=== PATIENT | male | born 1975 | race African-American/Black ===

== ENCOUNTER 2021-11-02 01:38 | Emergency (ER) | payer MEDICAID, OTHER ==
[~2021-11-02] VITALS: Ht 188 cm; Wt 118.0 kg
[~2021-11-02 01:38] MED LIST: ALBU6.7H15 INH; CHLO25TA27 PO; CLONIDINE; GABA-532 PO; GUAI-735 PO; LEVO500T2 PO; LISINOPRIL; METFORMIN; NORVASC; TRAM50TA3 PO
[2021-11-02 01:51] VITALS: BP 122/83
[2021-11-02] MEDS ORDERED: ACETAMINOPHEN 325MG TABLET PO STA (05:16)
[2021-11-02 05:54] LABS: BASOPHILS % 0.4 % (0.0-2.0); EOSINOPHILS % 1.7 % (0.0-5.0); HEMATOCRIT. 46.8 % (42.0-52.0); HEMOGLOBIN. 15.5 g/dL (14.0-18.0); LYMPHOCYTES % 35.7 % (20.0-50.0); MEAN CORPUSCULAR HEMOGLOBIN 27.8 pg (28.0-32.0); MEAN CORPUSCULAR VOLUME 83.9 fL (80.0-94.0); MEAN PLATELET VOLUME 7.6 fl (7.4-10.4); MONOCYTES % 7.4 % (2.0-8.0); NEUTROPHILS % 54.8 % (40.0-76.0); PLATELET 218 x1000/uL (130-400); RED BLOOD CELL COUNT 5.58 mill/uL (4.7-6.1); RED CELL DISTRIBUTION WIDTH 13.7 % (11.6-14.6)
[2021-11-02 06:03] LABS: CHLORIDE 101 mEq/L (98-107)
[2021-11-02] MEDS ORDERED: T3 PO (07:06)
== END 2021-11-02 07:37 | disposition home or self-care (01) ==
LOC: ER 01:38
DX: M62.838 Other muscle spasm (principal); E11.9 Type 2 diabetes mellitus without complications; I10 Essential (primary) hypertension; F12.10 Cannabis abuse, uncomplicated; Z87.820 Personal history of traumatic brain injury; Z79.84 Long term (current) use of oral hypoglycemic drugs
CPT/HCPCS: 36415; 80053; 82962; 85025; 99283

== ENCOUNTER 2022-08-14 11:24 | Inpatient (IN) | payer OTHER ==
[~2022-08-14] VITALS: Ht 185.4 cm; Wt 87.1 kg
[~2022-08-14 11:24] MED LIST changes: +T3 PO
[2022-08-14] MEDS ORDERED: NITROGLYCERIN OINT 1GM/INCH UDPKT TD ONE (12:00)
[2022-08-14] MEDS ORDERED: ASPIRIN 81MG TABLET PO ONE (12:00)
[2022-08-14 12:55] LABS: BASOPHILS % 0.3 % (0.0-2.0); EOSINOPHILS % 0.7 % (0.0-5.0); HEMATOCRIT. 41.7 % (42.0-52.0); LYMPHOCYTES % 21.8 % (20.0-50.0); MEAN CORPUSCULAR HEMOGLOBIN 28.2 pg (28.0-32.0); MEAN CORPUSCULAR VOLUME 83.9 fL (80.0-94.0); MEAN PLATELET VOLUME 7.5 fl (7.4-10.4); MONOCYTES % 8.2 % (2.0-8.0); PLATELET 273 x1000/uL (130-400); RED BLOOD CELL COUNT 4.97 mill/uL (4.7-6.1); RED CELL DISTRIBUTION WIDTH 14.9 % (11.6-14.6)
[2022-08-14 13:02] LABS: CHLORIDE 99 mEq/L (98-107)
[2022-08-14 20:00] VITALS: BP 123/76
[2022-08-15] VITALS (8 sets, daily range): BP systolic 114–156; BP diastolic 68–97
[2022-08-15] MEDS ORDERED: ACETAMINOPHEN 325MG TABLET PO PRN (00:15)
[2022-08-15 01:28] LABS: BASOPHILS % 0.2 % (0.0-2.0); EOSINOPHILS % 1.3 % (0.0-5.0); HEMATOCRIT. 38.7 % (42.0-52.0); HEMOGLOBIN. 12.9 g/dL (14.0-18.0); LYMPHOCYTES % 32.6 % (20.0-50.0); MEAN CORPUSCULAR HEMOGLOBIN 27.7 pg (28.0-32.0); MEAN CORPUSCULAR VOLUME 83.3 fL (80.0-94.0); MEAN PLATELET VOLUME 7.3 fl (7.4-10.4); MONOCYTES % 9.7 % (2.0-8.0); NEUTROPHILS % 56.2 % (40.0-76.0); PLATELET 261 x1000/uL (130-400); RED BLOOD CELL COUNT 4.65 mill/uL (4.7-6.1); RED CELL DISTRIBUTION WIDTH 14.7 % (11.6-14.6)
[2022-08-15 01:30] LABS: CHLORIDE 101 mEq/L (98-107)
[2022-08-15 01:37] LABS: HDL CHOLESTEROL 40 mg/dL (40-59); LDL CHOLESTEROL 91 mg/dL (5-100)
[2022-08-15] MEDS: ASPIRIN 325MG EC TABLET PO SCH (09:27)
[2022-08-15] MEDS: HEPARIN 5000 UNITS/ML VIAL SUBCUT SCH ×2 (09:28→21:39)
[2022-08-15] MEDS ORDERED: POTASSIUM CHLORIDE 20MEQ TABLET SR PO NR (12:15)
[2022-08-16] VITALS (8 sets, daily range): BP systolic 118–177; BP diastolic 71–111
[2022-08-16] MEDS: HEPARIN 5000 UNITS/ML VIAL SUBCUT SCH ×2 (11:08→21:30)
[2022-08-16] MEDS: ASPIRIN 325MG EC TABLET PO SCH (11:08)
[2022-08-16] MEDS ORDERED: HYDRALAZINE 20MG/ML VIAL IV NR (18:15)
[2022-08-16] MEDS ORDERED: AMLODIPINE 10MG TABLET PO NR (20:00)
[2022-08-16 21:56] LABS: CLARITY URINE CLEAR (CLEAR); COLOR URINE YELLOW (YELLOW); KETONES URINE NEGATIVE (NEGATIVE); LEUKOCYTE ESTERASE URINE NEGATIVE (NEGATIVE); NITRITE URINE NEGATIVE (NEGATIVE); OCCULT BLOOD URINE NEGATIVE (NEGATIVE); PH URINE 7.5 (4.5-8.0); PROTEIN URINE NEGATIVE (NEGATIVE); SPECIFIC GRAVITY URINE 1.005 (1.005-1.030)
[2022-08-17 04:00] VITALS: BP 123/79
[2022-08-17 08:00] VITALS: BP 151/106
[2022-08-17] MEDS: CLONIDINE 0.1MG TABLET PO PRN ×2 (09:02→13:10)
[2022-08-17] MEDS: ASPIRIN 325MG EC TABLET PO SCH (09:02)
[2022-08-17] MEDS: HEPARIN 5000 UNITS/ML VIAL SUBCUT SCH (09:25)
[2022-08-17 12:00] VITALS: BP 169/122
[2022-08-17 16:00] VITALS: BP 139/96
[2022-08-17 16:57] LABS: CHLORIDE 102 mEq/L (98-107)
[2022-08-17 19:02] VITALS: BP 128/94
== END 2022-08-17 21:04 | disposition home health service (06) | DRG 42 ==
LOC: ER 11:36 → 3WST 16:03
PROVIDERS: ADMIT Internal Medicine; ATTEND Internal Medicine
PROC: 4A00X4Z Measurement of Central Nervous Electrical Activity, External Approach (ICD-10-PCS; principal; 2022-08-17)
DX: G11.9 Hereditary ataxia, unspecified (principal); E11.9 Type 2 diabetes mellitus without complications; I10 Essential (primary) hypertension; Z79.4 Long term (current) use of insulin
CPT/HCPCS: 36415; 71045; 80048; 80053; 80061; 81003; 82390; 83880; 84484; 85025; 93005; 93306; 95816; 97162; 97166; 99285; C1893; J0360; J1644

== ENCOUNTER 2022-09-03 18:06 | Emergency (ER) | payer OTHER ==
[~2022-09-03] VITALS: Ht 188 cm; Wt 90.0 kg
[2022-09-03] MEDS ORDERED: ALPRAZOLAM 0.25 MG TABLET PO ONE ×2 (18:30→23:00)
[2022-09-03 19:08] LABS: BASOPHILS % 0.2 % (0.0-2.0); EOSINOPHILS % 0.7 % (0.0-5.0); HEMATOCRIT. 41.3 % (42.0-52.0); MEAN CORPUSCULAR HEMOGLOBIN 28.5 pg (28.0-32.0); MEAN CORPUSCULAR VOLUME 84.3 fL (80.0-94.0); MEAN PLATELET VOLUME 7.4 fl (7.4-10.4); MONOCYTES % 8.7 % (2.0-8.0); NEUTROPHILS % 60.4 % (40.0-76.0); PLATELET 291 x1000/uL (130-400); RED CELL DISTRIBUTION WIDTH 14.8 % (11.6-14.6)
[2022-09-03 19:12] LABS: CHLORIDE 96 mEq/L (98-107)
[2022-09-03 19:22] LABS: ETHANOL BLOOD < 10 mg/dL
[2022-09-03] MEDS ORDERED: ALPR0.5T MT (19:47)
[2022-09-04] VITALS: BP 120/60
== END 2022-09-04 00:07 | disposition home or self-care (01) ==
LOC: ER 18:06
DX: F41.9 Anxiety disorder, unspecified (principal); R07.89 Other chest pain; E11.9 Type 2 diabetes mellitus without complications; I10 Essential (primary) hypertension; F12.10 Cannabis abuse, uncomplicated; Z79.899 Other long term (current) drug therapy
CPT/HCPCS: 36415; 71045; 80053; 80320; 83880; 84484; 85025; 93005; 99285; G0480

== ENCOUNTER 2022-09-04 09:04 | Emergency (ER) | payer OTHER ==
[~2022-09-04] VITALS: Ht 188 cm; Wt 91.0 kg
[~2022-09-04 09:04] MED LIST changes: +ALPR0.5T MT
[2022-09-04] MEDS ORDERED: ALPRAZOLAM 0.5 MG TABLET PO ONE (11:15)
[2022-09-04] MEDS ORDERED: KETOROLAC 30MG/ML VIAL IV ONE (11:15)
[2022-09-04 11:17] LABS: BASOPHILS % 0.5 % (0.0-2.0); EOSINOPHILS % 1.3 % (0.0-5.0); HEMATOCRIT. 39.9 % (42.0-52.0); HEMOGLOBIN. 13.7 g/dL (14.0-18.0); MEAN CORPUSCULAR HEMOGLOBIN 28.9 pg (28.0-32.0); MEAN CORPUSCULAR VOLUME 84.4 fL (80.0-94.0); MEAN PLATELET VOLUME 8.1 fl (7.4-10.4); MONOCYTES % 8.9 % (2.0-8.0); NEUTROPHILS % 60.3 % (40.0-76.0); PLATELET 285 x1000/uL (130-400); RED BLOOD CELL COUNT 4.73 mill/uL (4.7-6.1); RED CELL DISTRIBUTION WIDTH 14.8 % (11.6-14.6)
[2022-09-04] MEDS: ALPRAZOLAM 0.25 MG TABLET PO NR ×2 (11:27→12:16)
[2022-09-04 12:17] LABS: CHLORIDE 100 mEq/L (98-107)
[2022-09-04 18:16] VITALS: BP 140/90
== END 2022-09-04 19:00 | disposition home or self-care (01) ==
LOC: ER 09:04
DX: F41.9 Anxiety disorder, unspecified (principal); R07.9 Chest pain, unspecified; E11.9 Type 2 diabetes mellitus without complications; I10 Essential (primary) hypertension; Z79.899 Other long term (current) drug therapy; Z79.84 Long term (current) use of oral hypoglycemic drugs
CPT/HCPCS: 36415; 71045; 80053; 83880; 84484; 85025; 93005; 96374; 99285; J1885; Z7610

== ENCOUNTER 2022-11-15 21:59 | Emergency (ER) | payer OTHER ==
[~2022-11-15] VITALS: Ht 177.8 cm; Wt 84.0 kg
[2022-11-15 22:06] VITALS: O2SAT 99
[2022-11-15] MEDS ORDERED: NITROGLYCERIN 0.4MG TABLET SL SL PRN (22:15)
[2022-11-15] MEDS ORDERED: ASPIRIN 81MG TABLET PO ONE (22:15)
[2022-11-15] MEDS ORDERED: ONDANSETRON HCL 4MG/2ML INJ IV STA (23:21)
[2022-11-15] MEDS ORDERED: MORPHINE SULFATE 4 MG/ML CPJ (NOT FOR IM USE) IV STA (23:21)
[2022-11-15 23:37] LABS: CHLORIDE 105 mEq/L (98-107)
[2022-11-16 00:49] LABS: BASOPHILS % 0.3 % (0.0-2.0); EOSINOPHILS % 2.5 % (0.0-5.0); HEMOGLOBIN. 13.2 g/dL (14.0-18.0); LYMPHOCYTES % 34.1 % (20.0-50.0); MEAN CORPUSCULAR HEMOGLOBIN 28.4 pg (28.0-32.0); MEAN CORPUSCULAR VOLUME 85.8 fL (80.0-94.0); MEAN PLATELET VOLUME 7.8 fl (7.4-10.4); MONOCYTES % 7.4 % (2.0-8.0); NEUTROPHILS % 55.7 % (40.0-76.0); PLATELET 280 x1000/uL (130-400); RED BLOOD CELL COUNT 4.66 mill/uL (4.7-6.1); RED CELL DISTRIBUTION WIDTH 14.1 % (11.6-14.6)
[2022-11-16 06:15] VITALS: BP 117/76; PULSE 87; RESP 16; TEMP 98.6
== END 2022-11-16 06:44 | disposition short-term general hospital (02) ==
LOC: ER 21:59 → CANBEDREQ 11-16 20:09
DX: R07.89 Other chest pain (principal); R47.81 Slurred speech; M79.10 Myalgia, unspecified site; F41.9 Anxiety disorder, unspecified; E11.9 Type 2 diabetes mellitus without complications; I10 Essential (primary) hypertension; Z79.899 Other long term (current) drug therapy; Z20.822 Contact with and (suspected) exposure to COVID-19
CPT/HCPCS: 80053; 82962; 83880; 85025; 84484 ×2; 36415 ×2; 71045; 93005; 96374; 96375; 99285; 87426; Z7610 ×4; J2405; J2270; C9803